=== PATIENT | female | born 1965 | race Caucasian/White ===

== ENCOUNTER → 2018-08-27 | Outpatient (CLI) | payer SELFPAY ==
[~2018-08-27] MED LIST: CYCL10TA9 PO; MELO-170 PO
--- NOTE | 2018-08-27 10:05 | Diagnostic Imaging Report ---
INDICATION: Low back pain. FINDINGS: The alignment of lumbar spine is grossly normal. There is an age-indeterminate mild compression fracture involving the superior endplate of L2. There is no spondylolysis or spondylolisthesis. There is mild lower lumbar degenerative disc disease. IMPRESSION: Mild age-indeterminate compression fracture involving superior endplate of L2. If there is high clinical concern that this may be acute, further evaluation with MRI should be considered. Otherwise mild lumbar spondylosis. Dictated by: Dictated on workstation # [id number]
== END ==
LOC: RAD FS 09:43
PROVIDERS: ATTEND Nurse Practitioner Family
DX: S32.020A Wedge compression fracture of second lumbar vertebra, initial encounter for closed fracture (principal)
CPT/HCPCS: 72100

== ENCOUNTER 2018-08-28 14:57 | Emergency (ER) | payer SELFPAY ==
[~2018-08-28] VITALS: Ht 157.5 cm; Wt 75.7 kg
--- OUTSIDE RECORDS SUMMARY | 2018-08-28 15:17 | XMS REPORT | Continuity of Care Document ---
Author Organization Unknown Address Unknown Allergies There is no data. Medications There is no data. Problems There is no data. Procedures There is no data. Results There is no data. Encounters ACCT No. Visit Date/Time Discharge Status Pt. Type Provider Facility Loc./Unit Complaint [id number] 08/27/2018 08:20:00 ACT Outpatient ABRIL REY [facility] [id number] 11/05/2017 12:39:28 11/05/2017 23:59:59 CLS Outpatient Bennie Conley
--- NOTE | 2018-08-28 15:27 | ED Headache ---
General Chief Complaint: Trauma-Non Activation Stated Complaint: HEADACHE Source: patient, RN notes reviewed Exam Limitations: no limitations History of Present Illness Date Seen by Provider: Aug 28, 2018 Time Seen by Provider: 15:27 Allergies and Home Medications Allergies Coded Allergies: iron (Verified Adverse Reaction, Unknown, vomiting, 08/28/18) Uncoded Allergies: ARTIFICIAL SWEETENER (Adverse Reaction, Unknown, vomiting, 08/28/18) FRUIT JUICE (Adverse Reaction, Unknown, vomiting, 08/28/18) Home Medications Cyclobenzaprine HCl 10 Mg Tablet, 10 MG PO Q8H PRN for HEADACHE Prescribed by: MAICO BONILLA on 08/28/18 1600 Meloxicam 7.5 Mg Tablet, 7.5 MG PO Q12H PRN for HEADACHE Prescribed by: MAICO BONILLA on 08/28/18 1600 Past Anvrtoq-Oosgpt-Zyemse Hx Patient Social History Recent Foreign Travel: No Contact w/Someone Who Travel: No Physical Exam Vital Signs Vital Signs - First Documented Capillary Refill : Height, Weight, BMI Height: '" Weight: lbs. oz. kg; BMI Method: Progress/Results/Core Measures Results/Orders My Orders Orders - MAICO BONILLA DO Ct Head/Neck Wo (08/28/18 15:27) Vital Signs/I&O 08/28/18 08/28/18 15:15 15:15 Temp 97.8 97.8 Pulse 82 82 Resp 16 16 B/P (MAP) 118/65 (82) 118/65 (82) Pulse Ox 93 93 O2 Delivery Room Air Room Air Departure Impression Primary Impression: Concussion Additional Impression: Fall Departure-Patient Inst. Referrals: [facility]/ (PCP) Primary Care Physician ABRIL REY APRN (Family) Primary Care Physician Patient Instructions: Concussion in Adults Add. Discharge Instructions: All discharge instructions reviewed with patient and/or family. Voiced understanding. Scripts Cyclobenzaprine HCl (Cyclobenzaprine HCl) 10 Mg Tablet 10 MG PO Q8H PRN for HEADACHE for 30 Days, #30 TAB 0 Refills Prov: MAICO BONILLA DO 08/28/18 Meloxicam (Mobic) 7.5 Mg Tablet 7.5 MG PO Q12H PRN for HEADACHE, #30 TAB 0 Refills Prov: MAICO BONILLA DO 08/28/18 MAICO BONILLA DO Aug 28, 2018 15:27
[2018-08-28] MEDS ORDERED: MELO-170 PO (16:00)
[2018-08-28] MEDS ORDERED: CYCL10TA9 PO (16:00)
[2018-08-28] MEDS ORDERED: KETOROLAC 15 MG/ML VIAL IM STA (16:06)
[2018-08-28] MEDS ORDERED: KETOROLAC 30 MG/ML VIAL ONE (16:09)
--- NOTE | 2018-08-28 16:12 | Diagnostic Imaging Report ---
CLINICAL INDICATION: Patient fell down a flight of stairs three days ago. Patient has pain to back of head. EXAM: Head CT without IV contrast. Axial CT scan of the cervical spine with sagittal and coronal reformations. COMPARISON: None. FINDINGS: HEAD CT: There is no evidence of acute cerebral infarct, intracranial hemorrhage, or gross mass effect. The brain parenchymal volume appears appropriate for patient's age. There is normal ribeiro-white matter distinction. There is no significant midline shift or herniation. There is no evidence of hydrocephalus. The basal cisterns are unremarkable. The skull, extracranial soft tissue, and orbits are unremarkable. There is mild ethmoid sinus disease. Temporal bones show no significant abnormality. CERVICAL SPINE: There is note of the C7 cervical right rib. There is straightening of the cervical spine posture with no acute fracture or dislocation. Intervertebral disc heights and vertebral body heights are well maintained. There is no significant bony central canal narrowing. There is moderate left C2-C3 and mild left C3-C4 neural foramen narrowing due to facet arthropathy. A small anterior spurs involving the cervical spine. There is no significant neck soft tissue abnormality. Visualized upper lung ramos show no significant abnormality. IMPRESSION: 1: Unremarkable CT scan of brain with no acute intracranial process. 2: Cervical spine degenerative disease with no acute fracture or dislocation. There is straightening of the cervical spine posture. Dictated by: Dictated on workstation # [id number]
[2018-08-28 16:17] VITALS: BP 118/65
== END 2018-08-28 16:25 | disposition home or self-care (01) ==
LOC: EDUNIT# 14:57 → ER FS 14:59
DX: S06.0X9A Concussion with loss of consciousness of unspecified duration, initial encounter (principal); Z88.8 Allergy status to other drugs, medicaments and biological substances; W19.XXXA Unspecified fall, initial encounter
CPT/HCPCS: 70450; 70490

== ENCOUNTER → 2022-02-01 | Outpatient (CLI) | payer MEDICARE, MEDICAID ==
[~2022-02-01] MED LIST changes: +CYCL10TA25 PO; -CYCL10TA9 PO
--- NOTE | 2022-02-01 13:58 | Diagnostic Imaging Report ---
INDICATION: Fall. Back pain. COMPARISON: None FINDINGS: Multiple frontal and lateral radiographic views of the lumbar spine were obtained. There is mild grade 1 retrolisthesis at L5-S1. There is no evidence of jumped facets. Vertebral body heights are maintained. There is no acute fracture. Mild to moderate multilevel degenerative changes are noted and consistent with intervertebral disc height loss with endplate sclerotic change and multilevel facet arthropathy. These changes appear greatest at the L1-L2, L4-L5, and L5-S1 levels. No unexpected radiopaque foreign bodies are seen. IMPRESSION: 1. Multilevel degenerative changes of the lumbar spine, but no acute fracture or dislocation.. Dictated by: Dictated on workstation # [id number]
== END ==
LOC: RAD FS 10:13
PROVIDERS: ATTEND Nurse Practitioner Family
DX: M47.816 Spondylosis without myelopathy or radiculopathy, lumbar region (principal)
CPT/HCPCS: 72100

== ENCOUNTER 2022-03-29 09:38 | Emergency (ER) | payer MEDICARE, MEDICAID ==
[~2022-03-29] VITALS: Ht 157.5 cm; Wt 81.6 kg
[2022-03-29 09:42] VITALS: BP 134/70
--- NOTE | 2022-03-29 09:53 | ED Lower Extremity ---
General Chief Complaint: Lower Extremity Stated Complaint: LT FOOT PAIN History of Present Illness Date Seen by Provider: Mar 29, 2022 Time Seen by Provider: 09:49 Initial Comments 56-year-old female presents with left foot pain. Patient reports that 2 days ago she stepped in a hole and that the pain has continued. She is able to ambulate and bear weight. She has some mild discoloration but no swelling. She denies any other injury. Allergies and Home Medications Allergies Coded Allergies: sulfamethoxazole (Verified Allergy, Unknown, 03/29/22) trimethoprim (Verified Allergy, Unknown, 03/29/22) iron (Verified Adverse Reaction, Unknown, vomiting, 08/28/18) Uncoded Allergies: ARTIFICIAL SWEETENER (Adverse Reaction, Unknown, vomiting, 08/28/18) FRUIT JUICE (Adverse Reaction, Unknown, vomiting, 08/28/18) Patient Home Medication List Home Medication List Reviewed: Yes Cyclobenzaprine HCl (Cyclobenzaprine HCl) 10 Mg Tablet, 10 MG PO Q8H PRN for HEADACHE Prescribed by: MAICO BONILLA on 08/28/18 1600 Meloxicam (Mobic) 7.5 Mg Tablet, 7.5 MG PO Q12H PRN for HEADACHE Prescribed by: MAICO BONILLA on 08/28/18 1600 Review of Systems Constitutional: no symptoms reported EENTM: no symptoms reported Respiratory: no symptoms reported Cardiovascular: no symptoms reported Gastrointestinal: no symptoms reported Genitourinary: no symptoms reported Musculoskeletal: see HPI Skin: see HPI Psychiatric/Neurological: No Symptoms Reported Past Enxclzz-Dnmzfs-Qzjhpo Hx Seasonal Allergies Seasonal Allergies: No Past Medical History Surgeries: Yes Appendectomy Cardiac: No Neurological: No Genitourinary: No Gastrointestinal: No Musculoskeletal: Yes (Restless leg syndrome) HEENT: No Cancer: No Psychosocial: No Integumentary: Yes (MRSA abscesses) Physical Exam Vital Signs Vital Signs - First Documented 03/29/22 09:42 Pulse 84 Resp 16 B/P (MAP) 134/70 (91) Pulse Ox 99 O2 Delivery Room Air Capillary Refill : Height, Weight, BMI Height: 5'2.00" Weight: 167lbs. oz. 75.122221vr; BMI Method:Stated General Appearance: WD/WN, no apparent distress HEENT: PERRL/EOMI Neck: full range of motion, supple Cardiovascular: normal peripheral pulses, regular rate, rhythm Respiratory: chest non-tender, lungs clear Hips: bilateral hip non-tender Legs: bilateral leg non-tender Knees: bilateral knee non-tender Ankles: left ankle soft tissue tenderness Feet: left foot pain, left foot soft tissue tenderness Neurologic/Psychiatric: alert, normal mood/affect, oriented x 3 Skin: ecchymosis (minimal left foot ) Progress/Results/Core Measures Results/Orders My Orders Orders - LASHA TRUJILLO DO Ankle 3 View Left (03/29/22 09:53) Foot 3 View Left (03/29/22 09:53) Vital Signs/I&O 03/29/22 09:42 Pulse 84 Resp 16 B/P (MAP) 134/70 (91) Pulse Ox 99 O2 Delivery Room Air Progress Progress Note : Progress Note Patient with negative x-ray of foot and ankle. Patient with no significant findings on physical exam. Discussed with her supportive care, including Bright wrap, topical lidocaine, ibuprofen, Tylenol and ice. Patient stable and discharged Diagnostic Imaging Diagonstic Imaging: Xray Comments Date of Exam:03/29/22 FOOT 3 VIEW LEFT INDICATION: Trauma, pain COMPARISON: Imaging of the left ankle from the same date. TECHNIQUE: 3 radiographs of the left foot dated 03/29/2022. FINDINGS: No acute fracture or dislocation. No destructive osseous process. Minimal scattered degenerative changes, greatest involving the 1st MTP joint where there is mild joint space narrowing. The Lisfranc joint is well-aligned. Tiny plantar calcaneal enthesophyte. No suspicious radiopaque foreign body. IMPRESSION: No acute osseous abnormality with minimal degenerative changes present. ANKLE 3 VIEW LEFT INDICATION: Trauma, pain COMPARISON: Imaging of the left foot from same date TECHNIQUE: 3 radiograph left ankle dated 03/29/2020 [place] findings: No acute fracture or dislocation. No destructive osseous process. The talar dome is unremarkable. Ankle mortise is symmetric. Very tiny plantar calcaneal enthesophyte. No suspicious radiopaque foreign body. IMPRESSION: No acute osseous abnormality. Departure Impression Primary Impression: Sprain or strain of foot Additional Impression: Sprain and strain of ankle Disposition: 01 HOME, SELF-CARE Condition: Stable Departure-Patient Inst. Referrals: ABRIL REY APRN (PCP) Primary Care Physician [facility] (Family) Primary Care Physician Patient Instructions: Ankle Sprain (DC), Sprain (DC) Add. Discharge Instructions: 4% topical lidocaine with menthol cream or gel, use as directed on package Tylenol or ibuprofen as needed for Bright wrap as needed for pain All discharge instructions reviewed with patient and/or family. Voiced understanding. LASHA TRUJILLO DO Mar 29, 2022 09:53
--- NOTE | 2022-03-29 10:11 | Diagnostic Imaging Report ---
INDICATION: Trauma, pain COMPARISON: Imaging of the left ankle from the same date. TECHNIQUE: 3 radiographs of the left foot dated 03/29/2022. FINDINGS: No acute fracture or dislocation. No destructive osseous process. Minimal scattered degenerative changes, greatest involving the 1st MTP joint where there is mild joint space narrowing. The Lisfranc joint is well-aligned. Tiny plantar calcaneal enthesophyte. No suspicious radiopaque foreign body. IMPRESSION: No acute osseous abnormality with minimal degenerative changes present. Dictated by: Dictated on workstation # [id number]
--- NOTE | 2022-03-29 10:12 | Diagnostic Imaging Report ---
INDICATION: Trauma, pain COMPARISON: Imaging of the left foot from same date TECHNIQUE: 3 radiograph left ankle dated 03/29/2020 DeGraff findings: No acute fracture or dislocation. No destructive osseous process. The talar dome is unremarkable. Ankle mortise is symmetric. Very tiny plantar calcaneal enthesophyte. No suspicious radiopaque foreign body. IMPRESSION: No acute osseous abnormality. Dictated by: Dictated on workstation # [id number]
== END 2022-03-29 10:21 | disposition home or self-care (01) ==
LOC: EDUNIT# 09:38 → ER FS 09:39
DX: S96.912A Strain of unspecified muscle and tendon at ankle and foot level, left foot, initial encounter (principal); X58.XXXA Exposure to other specified factors, initial encounter
CPT/HCPCS: 73610; 73630